=== PATIENT | male | born 1985 | race Two or more races ===

== ENCOUNTER 2017-07-26 16:27 | Emergency (ER) | payer SELFPAY ==
[~2017-07-26] VITALS: Ht 170.2 cm; Wt 72.6 kg
[2017-07-26 16:55] VITALS: BP 139/76
[2017-07-26] MEDS ORDERED: IBUPROFEN 400 MG TABLET. PO ONE (17:00)
[2017-07-26] MEDS ORDERED: oxyCODONE/APAP 5/325 1 TAB TABLET PO ONE (17:00)
[2017-07-26] MEDS ORDERED: LIDOCAINE 1% PF 2 ML VIAL. INJ ONE (17:30)
[2017-07-26] MEDS ORDERED: OXYC-323 PO (18:25)
--- NOTE | 2017-07-26 18:26 | PHYS DOC ---
Past Medical History Past Medical History: No Pertinent History Past Surgical History: No Surgical History Alcohol Use: None Drug Use: None Adult General Chief Complaint Chief Complaint: MECHANICAL FALL HPI HPI Patient is a 31 year old male presenting to the emergency department for evaluation of left wrist left ring finger and left scapular pain status post fall from a ladder approximately 8 feet above the ground. Patient denies any head neck chest abdomen back or other extremity pain and he denies any weakness numbness or tingling. No open wounds or abrasions. Review of Systems Review of Systems Constitutional: Denies fever or chills [] Eyes: Denies change in visual acuity, redness, or eye pain [] Respiratory: Denies cough or shortness of breath [] Cardiovascular: No additional information not addressed in HPI [] GI: Denies abdominal pain, nausea, vomiting, bloody stools or diarrhea [] Musculoskeletal: Denies back pain. Positive joint pain Integument: Denies abrasions Neurologic: Denies headache, focal weakness or sensory changes [] Current Medications Current Medications Current Medications Medications (Trade) Dose Ordered Sig/Sherin Start Time Stop Time Status Last Admin Dose Admin Ibuprofen (Motrin) 400 mg 1X ONCE 07/26/17 17:00 07/26/17 17:01 DC 07/26/17 17:17 400 MG Lidocaine HCl (Xylocaine-Mpf 1% Vial) 10 ml 1X ONCE 07/26/17 17:30 07/26/17 17:31 DC Oxycodone/ Acetaminophen (Percocet 5/325) 2 tab 1X ONCE 07/26/17 17:00 07/26/17 17:01 DC 07/26/17 17:17 2 TAB Allergies Allergies Allergies Coded Allergies Type Severity Reaction Last Updated Verified No Known Drug Allergies 07/26/17 No Physical Exam Physical Exam Constitutional: Well developed, well nourished, no acute distress, non-toxic appearance. [] HENT: Normocephalic, atraumatic, bilateral external ears normal, oropharynx moist, no oral exudates, nose normal. [] Eyes: PERRLA, EOMI, conjunctiva normal, no discharge. [] Neck: Normal range of motion, no tenderness, supple, no stridor. [] Cardiovascular:Heart rate regular rhythm, no murmur [] Lungs & Thorax: Bilateral breath sounds clear to auscultation [] Abdomen: Bowel sounds normal, soft, no tenderness, no masses, no pulsatile masses. [] Skin: Warm, dry, no erythema, no rash. [] Back: No tenderness, no CVA tenderness. Mild left scapular tenderness to palpation but no deformity bruising or abrasions. Extremities: Left ring finger distal phalanx is deformed and left wrist is swollen. Normal cap refill in all fingers with intact sensation and tendon function except for his left ring finger. Neurologic: Alert and oriented X 3, normal motor function, normal sensory function, no focal deficits noted. [] Current Patient Data Vital Signs Vital Signs Date Time Temp Pulse Resp B/P (MAP) Pulse Ox O2 Delivery O2 Flow Rate FiO2 07/26/17 16:55 98.5 82 16 139/76 (97) 98 Room Air 98.5 EKG EKG [] Radiology/Procedures Radiology/Procedures Chest x-ray shows no obvious pneumothorax or opacity free air with normal heart size and mediastinum. Wrist x-ray shows nondisplaced Colles' fracture and hand x-ray shows ring finger distal phalanx dislocation with possible middle phalanx fracture that is nondisplaced. Impressions: Indication: Joint dislocation Consent: Consent was obtained. Procedure: The pre-reduction exam showed distal perfusion and neurologic function to be normal.. The patient was placed in the appropriate position. Digital block performed patient's request and direct traction was used on both attempts. First attempt failed the second attempt was successful at reduction. Post reduction films were obtained and revealed satisfactory reduction. A post -reduction exam revealed distal perfusion and neurologic function to be normal. The affected area was immobilized with [IMMOB TYPE]. The patient tolerated the procedure well. Complications: none. Course & Med Decision Making Course & Med Decision Making Patient had thumb spica placed in addition to radha taping. Patient neurovascularly intact pre-and post splint application. Patient unfortunately likely has ligamentous damage to his left ring finger so recommended hand surgery follow-up at [facility] or other facility that has hand coverage. I stated he could follow at our orthopedic clinic for his Colles' fracture and recommended that he follow this week. I reiterated the importance of following with the hand surgeon as she may have a tendon that needs to be repaired. Patient was with his neighbor who was helping translate as they did not want blue phone educational sign language interpreter. Patient aware and agreeable with plan for discharge and verbalized understanding of the need for short-term follow-up and strict ED return precautions discussed including worsening pain weakness numbness tingling or other general concerns. Dragon Disclaimer Dragon Disclaimer This electronic medical record was generated, in whole or in part, using a voice recognition dictation system. Departure Departure Impression: Primary Impression: Radius fracture Additional Impression: Closed dislocation of phalanx of hand Disposition: HOME, SELF-CARE Condition: STABLE Referrals: NO PCP (PCP) CINTIA SALAZAR MD Patient Instructions: Colles Fracture Additional Instructions: PLEASE FOLLOW WITH [facility] AND OUR [facility] SOON YOU CAN. COME BACK TO THE ED WITH ANY NEW OR WORSENING CONCERNS. THANK YOU! Scripts Oxycodone/Apap 5-325 (PERCOCET 5-325 MG TABLET) 1 Each Tablet 1 TAB PO PRN Q6HRS Y for PAIN, #30 TAB 0 Refills Prov: ROSSANA LORENZO DO 07/26/17 Problem Qualifiers Primary Impression: Radius fracture Encounter type: initial encounter Radius location: distal Fracture type: closed Fracture morphology: Colles' Laterality: left Qualified Codes: S52.532A - Colles' fracture of left radius, initial encounter for closed fracture ROSSANA LORENZO DO Jul 26, 2017 18:25
--- NOTE | 2017-07-27 08:01 | RAD ---
Portable chest, 07/26/2017: History: Fall, injury The heart size and pulmonary vascularity are normal. No pulmonary infiltrates are seen. There is no evidence of pleural fluid or pneumothorax. IMPRESSION: No acute cardiopulmonary abnormality is detected.
--- NOTE | 2017-07-27 08:05 | RAD ---
Left wrist, 3 views, 07/26/2017: History: Fall, pain There is an oblique fracture of the distal radius with intra-articular extension. The fracture is slightly comminuted. There is no significant displacement of the major fracture fragment. The carpal bones are intact. No dislocation is evident at the wrist. IMPRESSION: Nondisplaced fracture of the distal left radius with intra-articular extension. Left hand, 3 views, 07/26/2017: There is dislocation of the distal phalanx of the ring finger at the DIP joint level. The distal phalanx is displaced posteriorly and in an ulnar direction. No additional fracture is identified. IMPRESSION: Dislocation of the ring finger at the DIP joint level.
--- NOTE | 2017-07-27 08:08 | RAD ---
Left little finger, 3 views, 07/26/2017, 5:47 PM: History: Postreduction evaluation Comparison is made to the study of earlier the same day. There is persistent, predominantly dorsal dislocation of the distal phalanx of the little finger. No fracture is identified. IMPRESSION: Persistent dislocation of the left little finger at the DIP joint level.
--- NOTE | 2017-07-27 08:10 | RAD ---
Left little finger, 3 views, 07/26/2017, 6:04 PM: History: Postreduction evaluation The dislocation of the little finger at the DIP joint has been reduced. No finger fracture is identified. The patient's known distal radial fracture is again noted. IMPRESSION: Satisfactory reduction of the left ring finger dislocation.
--- NOTE | 2017-07-27 13:48 | RAD ---
Hand x-rays Indication: Fall from 8 feet ladder onto left hand and left ribs. Technique: 3 views of the left hand Comparison: None Findings: There is nondisplaced complete fracture through the distal radius extending from the lateral cortex to the medial aspect of the articular surface at the radiocarpal joint. There is no angulation. Wrist swelling noted. There is posterior dislocation of the distal phalanx of the fourth finger at DIP joint. Impression: Fracture of the distal radius and dislocation of the fourth finger DIP joint as described above.
== END 2017-07-26 18:49 | disposition home or self-care (01) ==
LOC: ER 16:27
DX: S52.92XA Unspecified fracture of left forearm, initial encounter for closed fracture (principal); S63.295A Dislocation of distal interphalangeal joint of left ring finger, initial encounter; W11.XXXA Fall on and from ladder, initial encounter; Y93.89 Activity, other specified; Y92.89 Other specified places as the place of occurrence of the external cause; Y99.8 Other external cause status
CPT/HCPCS: 26770; 29125; 71010; 73110; 73130; 73140; 99284-25